=== PATIENT | female | born 2000 | race Caucasian/White ===

== ENCOUNTER 2020-03-31 15:07 | Emergency (ER) | payer OTHER, SELFPAY ==
[2020-03-31 15:28] VITALS: BP 148/71; PULSE 118; RESP 16; TEMP 37.1; O2SAT 100
--- NOTE | 2020-03-31 15:38 | ED.SKABFB ---
HPI - Skin/Abscess/Foreign Bdy General Chief complaint: Skin/Abscess/Foreign Body Stated complaint: R SORE BREAST Time Seen by Provider: 03/31/20 15:38 Source: patient Mode of arrival: ambulatory Limitations: no limitations History of Present Illness HPI narrative: This is a 19 years old female presents to the office for an evaluation of right breast pain for a couple days. Associated with discharge with foul odor. She also reports feverish feeling. She has nipple piecing; but she had it for a while and never had any issue. She is not breast-feeding or ever has a child. Her mother has breast cancer. Related Data Allergies Allergy/AdvReac Type Severity Reaction Status Date / Time No Known Allergies Allergy Verified 03/31/20 15:28 Review of Systems Review of Systems: Narrative: CONSTITUTIONAL: Reports feeling feverish and ill. Denies unintentional weight loss CARDIOVASCULAR: Denies chest pain RESPIRATORY: Denies dyspnea GASTROINTESTINAL: Denies abdominal pain, vomiting, diarrhea. Reports feeling nausea GENITOURINARY: Denies urinary symptoms SKIN: Denies rash MUSCULOSKELETAL: Denies acute back pain NEUROLOGIC: Denies lightheaded PMFSH Family History Family History Father Diabetes mellitus Grandparent Diabetes mellitus Family history of malignant neoplasm of breast Mother Family history of malignant neoplasm of breast in first degree relative Social History Social History Smoking status: Never smoker Alcohol intake: current Substance use type: marijuana Gender identity (if verbalized by the patient): Female Comments At time of signature, I agree with nursing past medical, surgical, social and family history. There is no relevant family history pertinent to the presenting complaint. Exam Narrative: Exam Narrative: GENERAL: This is a well-nourished, well-developed patient, in no apparent distress. CARDIOVASCULAR: Regular rate and rhythm without murmurs, gallops, or rubs. RESPIRATORY: Clear to auscultation. Breath sounds equal bilaterally. No wheezes, rales, or rhonchi. GASTROINTESTINAL: Abdomen soft, non-tender, nondistended. Bowel sounds are active. No hepato-splenomegaly, or palpable masses. No guarding. NEURO: awake, alert, and oriented to person, place and time. There were no obvious focal neurologic abnormalities. Steady gait [place] Coma Scale Eye Opening: Spontaneous 4 Anika Coma Scale Motor: Obeys Commands 6 Anika Coma Scale Verbal: Oriented 5 Chest: Chest/axillae images: 1. very tender, firm/indurate lesion with erythema 2. a few cystic lesions noted with examination without obvious nipple discharge Exam mail processor by edd Uribe 3. normal breast exam Course Vital Signs Vital signs: Vital Signs Temperature 98.7 F 03/31/20 15:28 Pulse Rate 118 H 03/31/20 15:28 Respiratory Rate 16 03/31/20 15:28 Blood Pressure 148/71 H 03/31/20 15:28 Pulse Oximetry 100 03/31/20 15:28 Temperature 98.7 F 03/31/20 15:28 Pulse Rate 118 H 03/31/20 15:28 Respiratory Rate 16 03/31/20 15:28 Blood Pressure 148/71 H 03/31/20 15:28 Pulse Oximetry 100 03/31/20 15:28 MDM - Skin/Abscess/Foreign Bdy MDM Narrative Medical decision making narrative: Elevated BP noted: patient is informed that they may have pre-hypertension or hypertension based on a blood pressure reading in the department. I recommend the patient call the primary care provider listed on their discharge instructions or a physician of their choice this week to arrange follow-up for further evaluation of possible pre-hypertension or hypertension within 1-2week. Discharge instructions reviewed with patient, as well as provided in writing per nursing staff. The instructions also include specific and strict return/GO TO THE ER as well as f/u information. All questions have been answered, and the patien
== END 2020-03-31 16:10 | disposition home or self-care (01) ==
PROVIDERS: Emergency Provider Nurse Practitioner; PCP Family Medicine
DX: N61.0 Mastitis without abscess (principal); R03.0 Elevated blood-pressure reading, without diagnosis of hypertension
CPT/HCPCS: 99203; G0463

== ENCOUNTER 2020-04-06 19:38 | Inpatient (IN) | payer OTHER, SELFPAY ==
--- NOTE | ~2020-04-06 | US_ITS ---
US breast RT complete DATE: 04/07/2020 09:15 INDICATION: Right breast erythema, abscess TECHNIQUE: Real-time imaging of the complete right breast COMPARISON: None FINDINGS: There is a large irregular complicated fluid collection consistent with abscess throughout much of the upper outer quadrant of the right breast. No suspicious solid lesion or shadowing is evident. IMPRESSION: Large irregular complicated fluid collection consistent with clinical diagnosis of absces s, upper outer quadrant of right breast Reviewed, dictated and finalized at [facility]. Reviewed, dictated and finalized at location [facility]. IMPRESSION: Large irregular complicated fluid collection consistent with clinic al diagnosis of abscess, upper outer quadrant of right breast
[2020-04-06 19:42] VITALS: BP 163/119; PULSE 115; RESP 18; TEMP 36.6; O2SAT 99
--- NOTE | 2020-04-06 20:34 | ED.GENADULT ---
HPI - General Adult General Chief complaint: Unspecified <Boby Corbin PA-C - Last Filed: 04/06/20 20:37> Stated complaint: mastitis <Boby Corbin PA-C - Last Filed: 04/06/20 20:37> Time Seen by Provider: 04/06/20 20:16 <Boby Corbin PA-C - Last Filed: 04/06/20 20:37> Source: patient <Boby Corbin PA-C - Last Filed: 04/06/20 20:37> Mode of arrival: ambulatory <Boby Corbin PA-C - Last Filed: 04/06/20 20:37> Limitations: no limitations <Boby Corbin PA-C - Last Filed: 04/06/20 20:37> History of Present Illness HPI narrative: Patient is a 19-year-old female who presents to emergency department for evaluation of red tender swollen right breast has been present for 1 week was started on antibiotics this week has been on 2 antibiotics to include Keflex and doxycycline with no improvement with continued increasing size patient denies similar occurrence in the past. Patient is not breast-feeding. Patient notes moderate aching pain that is worse with increasing size. Patient denies fever vomiting diarrhea or immunocompromise <Boby Corbin PA-C - Last Filed: 04/06/20 20:37> Related Data Allergies/adverse reactions: Allergies Allergy/AdvReac Type Severity Reaction Status Date / Time No Known Allergies Allergy Verified 04/06/20 20:38 <Boby Corbin PA-C - Last Filed: 04/06/20 20:37> Review of Systems Review of Systems: All systems reviewed & are unremarkable except as noted in HPI and below <Boby Corbin PA-C - Last Filed: 04/06/20 20:37> [facility] Surgical History Surgical History: Surgical History H/O adenoidectomy H/O hand surgery History of tonsillectomy <Boby Corbin PA-C - Last Filed: 04/06/20 20:37> Social History Social History: Social History Smoking status: Never smoker Alcohol intake: never Substance use type: marijuana Gender identity (if verbalized by the patient): Female <ANITA Cedillo Last Filed: 04/06/20 20:37> Exam Narrative: Exam Narrative: GENERAL: Well-appearing, well-nourished, and in no acute distress. HEAD: Normocephalic, atraumatic. EYES: PERRLA and EOMI. ENT: Nares clear, no rhinorrhea or epistaxis. Mucous membranes moist. CHEST: Clear to auscultation. No respiratory distress. No wheezes rales or rhonchi HEART: Regular rate and rhythm. No murmur heard. BREAST: Patient with large red tender swollen fluctuant area involving the right breast along the nipple margins from 10:00 to 7:00 EXTREMITIES: Normal range of motion. No edema. SKIN: Warm, dry, no rash. NEURO: No focal deficits. Alert and oriented x3. PSYCH: Normal mood and affect. <ANITA Cedillo Last Filed: 04/06/20 20:37> Course Course Emergency Course: Patient in the room aware of case findings treatment plan and diagnosis agreeing to stay in hospital <ANITA Cedillo Last Filed: 04/06/20 20:37> CLOTHING ROOM SUPERVISOR/PA Physician Supervision For this encounter, I have reviewed the PA documentation, treatment plan and medical decision making: And I have had [id number] time with the patient. Had discussion with the patient and family regarding need for admission IV antibiotics plan for general surgery evaluation tomorrow with possible need for further drainage all questions were answered and patient and family in agreement at this time <Pramod Dobson DO - Last Filed: 04/06/20 21:13> Consultations Consultation #1: Case discussed with surgeon who would like ultrasound of the breast with IV antibiotic therapy n.p.o. at midnight and reevaluation in the morning <ANITA Cedillo Last Filed: 04/06/20 20:37> Date: 04/06/20 <ANITA Cedillo Last Filed: 04/06/20 20:37> Time: 20:36 <ANITA Cedillo Last Filed: 04/06/20 20:37> Vital Signs Vital signs:
[2020-04-06 20:48] LABS: Basophils Absolute Auto 0.1 K/mm3 (0.0-0.1); Basophils Percent Auto 0.3 % (0.2-1.2); Eosinophils Absolute Auto 0.2 K/mm3 (0-0.3); Eosinophils Percent Auto 0.8 % (0-4.4); Hematocrit 40.8 % (37.0-47.0); Hemoglobin 13.7 g/dL (12.0-15.0); Immature Granulocyte Absolute 0.12 K/mm3 (0.00-0.031); Immature Granulocyte Percent A 0.7 % (0-0.5); Lymphocytes Absolute Auto 2.87 K/mm3 (0.9-3.2); Lymphocytes Percent Auto 15.7 % (18.3-44.2); Mean Corpuscular HGB Conc 33.6 g/dl (32-36); Mean Corpuscular Hemoglobin 29.5 pg (26-34); Mean Corpuscular Volume 87.9 fl (80-100); Monocytes Absolute Auto 1.3 K/mm3 (0.1-0.6); Monocytes Percent Auto 6.9 % (2.6-8.5); Neutrophils Absolute Auto 13.8 K/mm3 (1.3-6.7); Neutrophils Percent Auto 75.6 % (45.5-73.1); Platelet Count Result 423 k/mm3 (150-375); Red Blood Count 4.64 M/mm3 (4.2-5.4); Red Cell Distribution Width 12.1 % (11.5-14.5); White Blood Count 18.3 K/mm3 (4.5-10.0)
[2020-04-06 20:58] LABS: Lactic Acid Reflex 2.2 mmol/L (0.7-2.1)
[2020-04-06 20:59] VITALS: BP 109/76; PULSE 115; O2SAT 98
[2020-04-06 20:59] LABS: Blood Urea Nitrogen 11 mg/dL (7-17); Calcium 10.2 mg/dL (8.4-10.2); Carbon Dioxide 25 mmol/L (22-30); Chloride 102 mmol/L (98-107); Estimated CRCL calculation 147 ml/min; Estimated Glomerular Filt Rate > 60; Glucose 122 mg/dL (65-105); Potassium 3.7 mmol/L (3.4-5.0); Sodium 140 mmol/L (137-145)
[2020-04-06] MEDS: SODIUM CHLORIDE 0.9% IV 1,000 ML 999 ML IV CONT (21:12)
[2020-04-06] MEDS: KETOROLAC 30 MG/ML VIAL (*BKC) IV PUSH (21:13)
[2020-04-06] MEDS: LORAZEPAM INJ 2 MG/ML VIAL 1 MG IV PUSH (21:18)
[2020-04-06 22:25] VITALS: BP 134/74; PULSE 81; RESP 18; TEMP 37.2; O2SAT 98
--- NOTE | 2020-04-06 22:42 | ADMGEN ---
This patient, Yolis Wu, was admitted to 3 [facility] Surg Room 300-01. Patient/family oriented to hospital policies and general routines including ID bracelet, bed and alarms, visiting hours, pain management, procedures, bathroom and other care routines, personal items, smoking policy, room service/diet, and visiting hours. Valuables list has been completed. Information on how to activate the Rapid Response Team has been discussed. Patient/Family are encouraged to report perceived risks to care and to ask questions if they do not understand what they are told or what they should do.
[2020-04-06] MEDS: LACTATED RINGERS 1,000 ML 125 ML IV CONT (22:47)
[2020-04-06] MEDS: FAMOTIDINE 20 MG/2 ML VIAL IV PUSH (22:48)
[2020-04-06 23:45] LABS: Reflex Lactic Acid Yes or No Add Lactic
[2020-04-07] VITALS (8 sets, daily range): BP systolic 105–141; BP diastolic 59–87; PULSE 66–94; RESP 12–20; TEMP 36.4–38.3; O2SAT 94–100
[2020-04-07 00:53] LABS: Lactic Acid 0.6 mmol/L (0.7-2.1)
[2020-04-07] MEDS: ONDANSETRON INJ 4 MG/2 ML VIAL IV PUSH (00:58)
[2020-04-07 06:26] LABS: Basophils Percent Auto 0.1 % (0.2-1.2); Eosinophils Absolute Auto 0.2 K/mm3 (0-0.3); Eosinophils Percent Auto 1.1 % (0-4.4); Hemoglobin 11.3 g/dL (12.0-15.0); Immature Granulocyte Absolute 0.08 K/mm3 (0.00-0.031); Immature Granulocyte Percent A 0.6 % (0-0.5); Lymphocytes Absolute Auto 2.85 K/mm3 (0.9-3.2); Lymphocytes Percent Auto 20.1 % (18.3-44.2); Mean Corpuscular HGB Conc 32.3 g/dl (32-36); Mean Corpuscular Hemoglobin 29.3 pg (26-34); Mean Corpuscular Volume 90.7 fl (80-100); Mean Platelet Volume 10.2 fl (7.4-10.4); Monocytes Absolute Auto 1.2 K/mm3 (0.1-0.6); Monocytes Percent Auto 8.1 % (2.6-8.5); Neutrophils Absolute Auto 9.9 K/mm3 (1.3-6.7); Platelet Count Result 333 k/mm3 (150-375); Red Blood Count 3.86 M/mm3 (4.2-5.4); Red Cell Distribution Width 12.1 % (11.5-14.5); White Blood Count 14.2 K/mm3 (4.5-10.0)
[2020-04-07 06:44] LABS: Blood Urea Nitrogen 12 mg/dL (7-17); Calcium 8.9 mg/dL (8.4-10.2); Carbon Dioxide 30 mmol/L (22-30); Chloride 105 mmol/L (98-107); Estimated CRCL calculation 130 ml/min; Estimated Glomerular Filt Rate > 60; Glucose 83 mg/dL (65-105); Potassium 3.8 mmol/L (3.4-5.0); Sodium 140 mmol/L (137-145)
[2020-04-07] MEDS: FAMOTIDINE 20 MG/2 ML VIAL IV PUSH ×2 (08:09→20:33)
[2020-04-07] MEDS: LACTATED RINGERS 1,000 ML 125 ML IV CONT ×2 (11:33→23:16)
--- NOTE | 2020-04-07 11:53 | PM.IMHP ---
H&P: HPI History of Present Illness Chief complaint: Breast Abcess Narrative: Yolis Wu is a 19 year old female who presented to the emergency department with complaints of right breast pain, swelling, and redness. She reports first noticing a bump on her right outer breast near the nipple about 1.5-2 weeks ago. She started noticing some more swelling and tenderness, therefore she presented to an urgent care 3 days after the onset of symptoms. They prescribed her cephalexin, which she began taking. The following day, without improvement in symptoms, she presented to her PCP office. They prescribed her doxycycline additionally and were going to have her get an ultrasound this Tuesday. She reports taking the antibiotics as prescribed, but her symptoms worsened. Over the past 2 days, she states that her right breast became significantly more swollen, hard, and painful. She reports having drainage from her nipple and around her nipple piercing for the past few days. Reports low grade fever of 99F and chills. Also reports associated nausea, generalized weakness, and decreased appetite. Due to the increased swelling and pain, the patient presented to the ER last night for evaluation. In the ED, the provider aspirated about 6 mL of purulent fluid and sent this for culture. Labs revealed leukocytosis of 18,300 and lactic acid 2.2. She also had tachycardia with a heart rate of 115. Blood cultures were drawn. Our service was contacted for the right breast abscess and she was admitted with IV antibiotics, IV fluids, and analgesics. Patient has been NPO since midnight and an ultrasound of the right breast was ordered today. This showed a large irregular complicated fluid collection consistent with breast abscess of the right upper outer quadrant. Labs this morning were improved with white blood cell count of 14,200 and normal lactic acid of 0.6. Tachycardia resolved. Patient seen on the medical floor this morning. She is reporting a lot of anxiety with the hospitalization and thoughts of surgery. She typically takes fluoxetine daily for her anxiety. Reports right breast pain, swelling, redness, and tenderness. No other complaints at this time. Denies a history of breast abscess. No tobacco use, but reports daily marijuana use. Family history of breast cancer in her mother and maternal grandmother. Not currently and is without children. Reports nipple piercings that were done about 3 years ago with no recent issues with the piercing. No recent trauma to the right breast. Review of Systems Review of Systems: All systems reviewed & are unremarkable except as noted in HPI and below Constitutional: Constitutional: Reports as per HPI, Reports chills, Denies excessive sweating, Denies fatigue, Reports fever(s), Reports headache(s) and Reports weakness (generalized) Eyes: Eyes: Denies change in vision and Denies loss of vision ENT: Reports Normal hearing present and Denies dizziness Cardiovascular: Cardiovascular: Denies chest pain, Denies syncope, Denies leg edema, Denies lightheadedness and Denies radiating jaw, neck or arm pain Respiratory: Respiratory: Denies cough, Denies dyspnea and Denies wheezing Gastrointestinal: Gastrointestinal: Reports as per HPI, Denies abdominal pain, Denies bloating, Denies change in bowel habits, Denies constipation, Denies diarrhea, Reports nausea and Denies vomiting Musculoskeletal: Musculoskeletal: Denies deformity, Denies joint swelling, Denies radiating pain into limb and Denies tingling Integumentary/Breasts: Skin/Breast: Denies pruritus, Denies wounds and Denies jaundice Neurologic: Reports Normal hearing present, Denies confusion, Denies dizziness, Denies syncope, Denies loss of vision, Denies tingling and Denies tremor(s) Psychiatric: Psychiatric: Reports anxiety, Denies confusion and Denies depression Endocrine: Endocrine: Denies cold intolerance, Denies excessive sweating and Denies heat intolerance PMFSH Past Me
--- NOTE | 2020-04-07 12:47 | WPDANESEPPF ---
Anes - Initial Pre Proc Eval Procedure: Operation Date: 04/07/20 16:00 Proposed Procedures p INCISION AND DRAINAGE RIGHT BREAST ABSCESS - Laine Wahl MD Date/Time: 04/07/20 12:47 Surgeon: Laine Wahl MD Pre Op Diagnosis: Breast Abcess Patient Data Age: 19 Gender: F Height: 1.7 m Weight: 118 kg Last Vital Signs Temp 36.4 C L 04/07/20 05:56 Pulse 76 04/07/20 05:56 Resp 18 04/07/20 05:56 BP 132/74 04/07/20 05:56 Pulse Ox 100 04/07/20 05:56 Allergies Allergy/AdvReac Type Severity Reaction Status Date / Time No Known Allergies Allergy Verified 04/06/20 20:38 Home Medications Medication Instructions Recorded Confirmed Type cephalexin [Keflex] 500 mg PO QID 10 Days #40 cap 03/31/20 04/06/20 Rx doxycycline hyclate 100 mg capsule 100 mg PO DAILY #14 cap 04/01/20 04/06/20 Rx fluoxetine 20 mg capsule 20 mg PO DAILY #30 cap 04/01/20 04/06/20 Rx norethindrone 1 mg-ethinyl 1 tablet PO DAILY #21 tablet 04/01/20 04/06/20 Rx estradiol 35 mcg (21) tablet spironolactone 50 mg tablet 50 mg PO DAILY #30 tablet 04/01/20 04/06/20 Rx Laboratory Tests 04/06/20 04/06/20 04/06/20 20:41 20:41 20:41 WBC 18.3 K/mm3 H K/mm3 (4.5-10.0) RBC 4.64 M/mm3 M/mm3 (4.2-5.4) Hgb 13.7 g/dL g/dL (12.0-15.0) Hct 40.8 % % (37.0-47.0) MCV 87.9 fl fl (80-100) MCH 29.5 pg pg (26-34) MCHC 33.6 g/dl g/dl (32-36) RDW 12.1 % % (11.5-14.5) Plt Count 423 k/mm3 H k/mm3 (150-375) MPV 10.0 fl fl (7.4-10.4) Immature Gran % (Auto) 0.7 % H % (0-0.5) Neut % (Auto) 75.6 % H % (45.5-73.1) Lymph % (Auto) 15.7 % L % (18.3-44.2) [place] % (Auto) 6.9 % % (2.6-8.5) Eos % (Auto) 0.8 % % (0-4.4) Baso % (Auto) 0.3 % % (0.2-1.2) Lymph # (Auto) 2.87 K/mm3 K/mm3 (0.9-3.2) [place] # (Auto) 1.3 K/mm3 H K/mm3 (0.1-0.6) Eos # (Auto) 0.2 K/mm3 K/mm3 (0-0.3) Baso # (Auto) 0.1 K/mm3 K/mm3 (0.0-0.1) Abs Immat Gran (auto) 0.12 K/mm3 H K/mm3 (0.00-0.031) Absolute Neuts (auto) 13.8 K/mm3 H K/mm3 (1.3-6.7) Absolute Nucleated RBC 0.0 K/mm3 K/mm3 (0.0-0.012) Nucleated RBC % 0.0 % % (0.0-0.2) Sodium 140 mmol/L mmol/L (137-145) Potassium 3.7 mmol/L mmol/L (3.4-5.0) Chloride 102 mmol/L mmol/L (98-107) Carbon Dioxide 25 mmol/L mmol/L (22-30) BUN 11 mg/dL mg/dL (7-17) Creatinine 0.70 mg/dL mg/dL (0.7-1.0) Estim Creat Clear Calc 147 ml/min ml/min Estimated GFR > 60 (59 - ) Glucose 122 mg/dL H mg/dL (65-105) Lactic Acid 2.2 mmol/L H mmol/L (0.7-2.1) Calcium 10.2 mg/dL mg/dL (8.4-10.2) 04/07/20 04/07/20 04/07/20 00:31 05:29 05:29 WBC 14.2 K/mm3 H K/mm3 (4.5-10.0) RBC 3.86 M/mm3 L M/mm3 (4.2-5.4) Hgb 11.3 g/dL L g/dL (12.0-15.0) Hct 35.0 % L % (37.0-47.0) MCV 90.7 fl fl (80-100) MCH 29.3 pg pg (26-34) MCHC 32.3 g/dl g/dl (32-36) RDW 12.1 % % (11.5-14.5) Plt Count 333 k/mm3 k/mm3 (150-375) MPV 10.2 fl fl (7.4-10.4) Immature Gran % (Auto) 0.6 % H % (0-0.5) Neut % (Auto) 70.0 % % (45.5-73.1) Lymph % (Auto) 20.1 % % (18.3-44.2) [place] % (Auto) 8.1 % % (2.6-8.5) Eos % (Auto) 1.1 % % (0-4.4) Baso % (Auto) 0.1 % L % (0.2-1.2) Lymph # (Auto) 2.85 K/mm3 K/mm3 (0.9-3.2) [place] # (Auto) 1.2 K/mm3 H K/mm3 (0.1-0.6) Eos # (Auto) 0.2 K/mm3 K/mm3 (0-0.3) Baso # (Auto) 0.0 K/mm3 K/mm3 (0.0-0.1) Abs Immat Gran (auto) 0.08 K/mm3 H K/mm3 (0.00-0.031) Absolute Neuts (auto) 9.9 K/mm3 H K/mm3 (1.3-6.7) Absolute Nucl
[2020-04-07] MEDS: LORAZEPAM INJ 2 MG/ML VIAL 0.5 MG IV PUSH (12:51)
[2020-04-07 14:01] LABS: Beta HCG Quantitative < 2.39 mIU/ML
[2020-04-07] MEDS: LACTATED RINGERS 1,000 ML 30 ML IV CONT (14:15)
--- NOTE | 2020-04-07 15:46 | PM.PROC ---
Procedure Note - Detailed Date of procedure: 04/07/20 Pre-op diagnosis: Breast Abcess Right breast abscess measuring approximately 20 x 15 cm Post-op diagnosis: same Procedure performed: complex incision and drainage of right breast abscess measuring approximately 20 x 15 by 10 cm Description of procedure: The patient was taken to the operating room placed in the supine position. After adequate induction of mac anesthesia, the patient was prepped and draped normal sterile fashion. A time-out was then done to verify the patient's identity as well as the procedure being performed. I began by localizing in around this very large abscess in the right outer breast. Once this area was locally anesthetized, I made an incision over the most fluctuant area of this abscess. Immediately a large amount purulence drainage was noted. I went ahead and obtained sterile cultures at this time. I used a hemostat to bluntly dissect this very large cavity and broke up further loculations. The abscess was noted to be contained within the subcutaneous breast tissue and did not involve the underlying fascia or muscle. A large amount of purulent drainage was noted. The measurements of the cavity were approximately 20 x 15 x 10 cm. Once the area was completely opened and drained, I went ahead and flushed the cavity with sterile saline. I then packed the entire cavity with 1 in iodoform packing to keep it open and draining. Sterile dressing was then placed on the wound. The patient tolerated the procedure well, was alert and awake in the operating room postoperatively, and will the transferred to the recovery room in stable condition. Implants: none Anesthesia: MAC and local Surgeon: Laine Wahl MD Estimated blood loss (mL): 5 Drains: No Packing: Yes Pathology: yes Complications: No immediate complications Condition: stable Disposition: PACU Findings: large loculated right outer breast abscess involving nipple-areolar complex measuring 20 x 15 x 10 cm
[2020-04-07] MEDS: BUPIVACAINE/EPINEPHRINE 0.5% 30 ML VIAL 20 ML INFILTRATE (15:53)
[2020-04-07] MEDS: MORPHINE SULFATE 4 MG/ML INJ IV PUSH (20:33)
[2020-04-08 02:00] VITALS: BP 113/51; PULSE 93; RESP 18; TEMP 37.9; O2SAT 95
[2020-04-08] MEDS: MORPHINE SULFATE 4 MG/ML INJ IV PUSH (05:55)
[2020-04-08 06:00] VITALS: BP 122/61; PULSE 75; RESP 18; TEMP 36.1; O2SAT 98
[2020-04-08] MEDS: LACTATED RINGERS 1,000 ML 125 ML IV CONT (07:50)
[2020-04-08 08:18] VITALS: BP 139/63; PULSE 75; RESP 18; TEMP 36.8; O2SAT 99
[2020-04-08] MEDS: SPIRONOLACTONE 50 MG TABLET PO (08:19)
[2020-04-08] MEDS: FLUOXETINE HCL 20 MG CAP PO (08:20)
[2020-04-08] MEDS: FAMOTIDINE 20 MG/2 ML VIAL IV PUSH (08:20)
[2020-04-08] MEDS: DOXYCYCLINE HYCLATE 100 MG TABLET PO (08:20)
[2020-04-08 10:19] VITALS: BP 127/62; PULSE 70; RESP 16; TEMP 36.6; O2SAT 99
--- NOTE | 2020-04-08 11:31 | PC.NURSE ---
Zofran medication offered to patient, patient denied needed nausea medication. Medication returned to med room.
[2020-04-08] MEDS: ONDANSETRON INJ 4 MG/2 ML VIAL IV PUSH (12:19)
[2020-04-08 14:34] VITALS: BP 130/70; PULSE 84; RESP 16; TEMP 36.7; O2SAT 97
--- NOTE | 2020-04-08 15:04 | PM.DS ---
DS: Admitting Diagnosis Admitting Diagnosis Admitting Diagnosis: Abscess of the right breast and nipple DS: Discharge Diagnosis Discharge Diagnosis (1) Abscess of breast: Code(s): N61.1 - Abscess of the breast and nipple Status: Acute Assessment and Plan: 04/07/20 Incision and drainage of right breast abscess by Dr. Wahl (2) Anxiety: Code(s): F41.9 - Anxiety disorder, unspecified Status: Acute (3) Sepsis: Code(s): A41.9 - Sepsis, unspecified organism Status: Acute Assessment and Plan: Criteria met on admission with tachycardia, leukocytosis, and lactic acidosis. Blood cultures NGTD. Treated with IV fluids and IV antibiotics. Lactic acidosis and tachycardia quickly resolved. Leukocytosis improving with treatment. Will await final blood culture results. (4) Obesity, morbid: Code(s): E66.01 - Morbid (severe) obesity due to excess calories Status: Acute DS: Summary Hospital Course Reason for hospitalization: Yolis Wu is a 19 year old female who presented to the emergency department yesterday with complaints of right breast pain, swelling, and redness. Symptom onset was 1.5 - 2 weeks prior and she had been prescribed both cephalexin and doxycycline orally as an outpatient with symptoms continuing to worsen. ED evaluation revealed a right breast abscess that was aspirated and sent for culture. Our service was contacted by the ED physician and she was admitted for surgical evaluation of right breast abscess. Hospital Course: The patient was started on IV antibiotics, IV fluids, and made NPO. After evaluation, the patient had evidence of a large right breast abscess that had failed outpatient antibiotic treatment and was only able to get 6 mL aspirated in the ED. Ultrasound of the right breast was ordered and showed a large complicated fluid collection consistent with an abscess. She was taken for urgent incision and drainage of the right breast abscess by Dr. Wahl on 04/07/20. Intraoperative cultures were taken. Both preliminary cultures show gram positive cocci. She has been on IV Ancef while inpatient. The patient did have some issues with pain control overnight and was given IV Morphine for breakthrough pain. WBC down with the IV antibiotics and this morning she is afebrile. I saw the patient this afternoon after Idalia was given to do a dressing change at the bedside. The patient was able to tolerate this with oral pain medication and there was no purulent drainage on my exam. She is comfortable with this as well. She had taken pain medication earlier this morning on an empty stomach and developed some nausea. This was treated with Zofran and improved and is now tolerating a diet and tolerating the pain medication. I discussed the patient's plan of care with Dr. Wahl and we will discharge her today with 10 more days of antibiotics and packing to the right breast incision daily. During the dressing change today, I educated her mother (who is a retired nurse) on dressing changes and she was able to watch for education via [facility]. Both her and her mother are comfortable with discharge and doing dressing changes at home. All questions were answered. Follow-up in 7-10 days for wound recheck in our office. Status at Discharge Functional status at discharge: independent ambulation Overall status at discharge: patient is progressing back to baseline Time Spent with Patient Time attestation: Total time spent providing and/or coordinating discharge services: Time spent: Greater than 30 minutes Exam Const: General: comfortable, no acute distress, alert and awake Orientation/consciousness: patient oriented x3 Skin: Other: Right breast packing and dressing removed. Surrounding erythema and induration improved. No purulent drainage noted. Repacked with 1/4 iodoform gauze and covered with gauze/ABD pad and medipore tape (will give 1 iodoform for dressing changes at home, 1/4 was only available
== END 2020-04-08 17:30 | disposition home or self-care (01) | DRG 854 ==
LOC: ANHED 20:57 → ANH3MEDSUR 21:33
PROVIDERS: Anesthesiology; Emergency Medicine Emergency Medical Services; Admitting Provider Surgery; Emergency Provider Emergency Medicine; PCP Family Medicine; Visit Provider Surgery
PROC: 0H9T0ZX Drainage of Right Breast, Open Approach, Diagnostic (ICD-10-PCS; principal; 2020-04-07 16:00)
DX: A41.9 Sepsis, unspecified organism (principal); Z68.41 Body mass index [BMI] 40.0-44.9, adult; E87.2 Acidosis; N61.1 Abscess of the breast and nipple; B96.89 Other specified bacterial agents as the cause of diseases classified elsewhere; F41.9 Anxiety disorder, unspecified; E66.01 Morbid (severe) obesity due to excess calories; E28.2 Polycystic ovarian syndrome; L68.0 Hirsutism
CPT/HCPCS: 36415; 76641; 80048; 83605; 84702; 85025; 87040; 87070; 87075; 87076; 87205; 96365; 96375; 99285; A9270; J0131; J0690; J1885; J2060; J2250; J2270; J2405; J2704; J3010; J7030; J7120